=== PATIENT | female | born 1975 | race Caucasian/White ===

== ENCOUNTER 2017-10-25 21:12 | Emergency (ER) | payer OTHER ==
--- NOTE | 2017-10-25 23:00 | ER Document Report ---
ED General - General Chief Complaint: Chest Tightness Stated Complaint: SHOULDER/BACK PAIN Time Seen by Provider: 10/25/17 22:59 Notes: Patient is a 42-year-old female presents with complaint of some chest tightness. No difficulty breathing. No fevers. No nausea. No vomiting. Such as Tylenol has been very mild and intermittent throughout the day. She says she also some right shoulder and arm pain. She says this is chronic recurring and is told in the past is most likely related to carpal tunnel syndrome. She says she has pain feels like a tapping sensation behind her right shoulder blade and the pain into numbness into her right arm and wrist. Said she first had this a few years ago. She was given a wrist splint to wear at night. Her she is to have the symptoms again a few days ago and start wearing a wrist splint that has helped some. Only family history of coronary disease as her dad had quadruple bypass just 2 years ago. No family history of heart disease at a young age. Patient is not diabetic. She does not smoke. She does not have a history of high cholesterol or hypertension. She is not taking medications. TRAVEL OUTSIDE OF THE [place] IN LAST 30 DAYS: No Past Medical History - Social History Smoking Status: Never Smoker Frequency of alcohol use: Rare Drug Abuse: None Family History: CVA - Dad with a heart attack within the past few months. - Immunizations Hx Diphtheria, Pertussis, Tetanus Vaccination: Yes Review of Systems - Review of Systems Notes: My Normal Review Basic REVIEW OF SYSTEMS: CONSTITUTIONAL : Denies fever, chills, or sweats. Denies recent illness. EENT: Denies eye, ear, throat, or mouth pain or symptoms. Denies nasal or sinus congestion. CARDIOVASCULAR: Mild chest tightness RESPIRATORY: Denies cough, cold, or chest congestion. Denies shortness of breath, difficulty breathing, or wheezing. GASTROINTESTINAL: Denies abdominal pain. Denies nausea, vomiting, or diarrhea. GENITOURINARY: Denies difficulty urinating, painful urination, burning, frequency, or blood in urine. MUSCULOSKELETAL: Denies neck or back pain or joint pain or swelling. SKIN: Denies rash or skin lesions. NEUROLOGICAL: Denies altered mental status or loss of consciousness. Denies headache. Denies weakness or paralysis or loss of use of either side. Denies problems with gait or speech. Denies sensory or motor loss. ALL OTHER SYSTEMS REVIEWED AND NEGATIVE. Physical Exam - Vital signs Vitals: Temp Pulse Resp BP Pulse Ox 98.7 F 96 16 136/87 H 98 10/25/17 21:42 10/25/17 21:42 10/25/17 21:42 10/25/17 21:42 10/25/17 21:42 - Notes Notes: General Appearance: Well nourished, alert, cooperative, no acute distress, no obvious discomfort. Well-appearing. Vitals: reviewed, See vital signs table. Head: no swelling or tenderness to the head Eyes: PERRL, EOMI, Conjuctiva clear Mouth: No decreasd moisture Lungs: No wheezing, No rales, No rhonci, No accessory muscle use, good air exchange bilaterally. Heart: Normal rate, Regular rythm, No murmur, no rub Abdomen: Normal BS, soft, No rigidity, No abdominal tenderness, No guarding, no rebound, no abdominal masses, no organomegaly Extremities: strength 5/5 in all extremities, good pulses in all extremities, no swelling or tenderness in the extremities, no edema. Skin: warm, dry, appropriate color, no rash. Reproducible pain with range of motion of the right shoulder or palpation of the shoulder. Neuro: speech clear, oriented x 3, normal affect, responds appropriately to questions. Cranial nerves II through XII are intact. Patient has good strength and neurologic function in her right hand. She is able to flex and extend all fingers. She is able to abduct and adduct her fingers on difficult. Good distal sensation in radial ulnar and median nerve dermatomes. Course - Re-evaluation Re-evalutation: 10/26/17 05:40 Patient's cardiac workup is negative. She has a heart score of 1. She is well- appearing. I do not think she needs any further cardiac workup at this time. Should patient does have pain shoots up and down her arm. She does have some recurrent pain with tapping over the wrist. She has been told before that this is related to carpal tunnel and she was given a splint. She just start wearing the splint again and the pain does seem to improve at this point and therefore think carpal tunnel is a possibility. I will refer her to orthopedist. Informed her that if it is carpal tunnel that she should follow with orthopedics to get treatment otherwise she could have nerve damage and of decreased function of her hand with time. Patient shows understanding of this and agrees with plan. Patient encouraged to return to the ER immediately if she has some chest pain, difficulty breathing, or feels unwell. Dictation of this chart was performed using voice recognition software; therefore, there may be some unintended grammatical errors. - Vital Signs Vital signs: Temp Pulse Resp BP Pulse Ox 98.7 F 96 16 136/88 H 98 10/25/17 22:48 10/25/17 21:42 10/25/17 22:48 10/25/17 22:48 10/25/17 22:48 - Laboratory Result Diagrams: 10/25/17 23:35 10/25/17 23:35 Laboratory results interpreted by me: 10/25/17 23:35 Hgb 8.5 L Hct 27.3 L MCV 63 L MCH 19.5 L MCHC 31.1 L RDW 19.0 H - EKG Interpretation by Me Additional EKG results interpreted by me: 10/25/17 22:59 EKG is reviewed and interpreted by me. EKG shows normal sinus rhythm with rate of [address] segment elevation or depression. No concerning T-wave inversions. IL interval, QRS duration, QTc intervals are within normal range. Old EKG for comparison from November 25, 2015. Discharge - Discharge Clinical Impression: Chest pain Qualifiers: Chest pain type: unspecified Qualified Code(s): R07.9 - Chest pain, unspecified Arm pain Qualifiers: Laterality: right Qualified Code(s): M79.601 - Pain in right arm Condition: Good Disposition: HOME, SELF-CARE Additional Instructions: Please return to the ER immediately if you develop worsening chest pain, difficulty breathing, or feel unwell. Please follow up with the orthopedist, Dr. De León, for further evaluation and treatment of potential carpal tunnel syndrome. Forms: Return to Work
[2017-10-25 23:06] VITALS: BP 136/88
[2017-10-25 23:59] LABS: ABSOLUTE BASOPHILS # (AUTO) 0.1 10^3/uL (0.0-0.2); ABSOLUTE EOSINOPHILS # (AUTO) 0.1 10^3/uL (0.0-0.6); ABSOLUTE MONOCYTES (AUTO) 0.5 10^3/uL (0.1-1.4); BASOPHILS % (AUTO) 1.2 % (0-2); EOSINOPHILS % (AUTO) 1.1 % (0-6); HEMATOCRIT 27.3 % (36.0-47.0); HEMOGLOBIN 8.5 g/dL (12.0-15.5); LYMPHOCYTES % (AUTO) 26.2 % (13-45); MEAN CORPUSCULAR HEMOGLOBIN 19.5 pg (27.0-33.4); MEAN CORPUSCULAR HGB CONC 31.1 g/dL (32.0-36.0); MONOCYTES % (AUTO) 6.5 % (3-13); PLATELET COUNT 307 10^3/uL (150-450); RED BLOOD COUNT 4.35 10^6/uL (3.72-5.28); TOTAL CELLS COUNTED % (AUTO) 100 %; WHITE BLOOD COUNT 7.8 10^3/uL (4.0-10.5)
[2017-10-26 00:04] LABS: ALANINE AMINOTRANSFERASE 23 U/L (9-52); ALBUMIN 4.1 g/dL (3.5-5.0); ALKALINE PHOSPHATASE 71 U/L (38-126); ANION GAP 12 (5-19); ASPARTATE AMINO TRANSFERASE 14 U/L (14-36); BILIRUBIN,DIRECT 0.2 mg/dL (0.0-0.4); BILIRUBIN,TOTAL 0.3 mg/dL (0.2-1.3); BLOOD UREA NITROGEN 9 mg/dL (7-20); CARBON DIOXIDE 25 mmol/L (22-30); CHLORIDE 104 mmol/L (98-107); GLUCOSE 97 mg/dL (75-110); SODIUM 140.8 mmol/L (137-145); TOTAL PROTEIN 7.2 g/dL (6.3-8.2)
--- NOTE | 2017-10-26 00:05 | RADIOLOGY REPORT (SQ) ---
EXAM DESCRIPTION: CLINICAL HISTORY: 42 years Female chest pain COMPARISON: None. FINDINGS: The cardiomediastinal silhouette appears unremarkable. No consolidating infiltrates or pleural effusions. No pneumothorax. IMPRESSION: No acute abnormality is identified.
[2017-10-26 00:18] LABS: MEAN CORPUSCULAR VOLUME 63 fl (80-97)
[2017-10-26 00:49] LABS: HYPOCHROMASIA 3+; POLYCHROMASIA SLIGHT
[2017-10-26 00:50] LABS: OVALOCYTES 1+; PLATELET COMMENT ADEQUATE
--- NOTE | 2017-10-26 07:37 | EKG REPORT ---
SEVERITY:- BORDERLINE ECG - SINUS RHYTHM BORDERLINE T ABNORMALITIES, INFERIOR LEADS : Confirmed by: Marvin Rosales MD 26-Oct-2017 07:36:56
[2017-10-29 09:01] LABS: PATH REVIEW PATHOLOGIST REVIEWED
== END 2017-10-26 01:58 | disposition home or self-care (01) ==
LOC: ER 21:12
DX: R07.9 Chest pain, unspecified (principal); M79.601 Pain in right arm
CPT/HCPCS: 36415; 71045; 80053; 84484; 85025; 93005; 93010; 99285

== ENCOUNTER 2017-10-28 18:27 | Emergency (ER) | payer OTHER ==
[2017-10-28 18:37] VITALS: BP 137/85
[2017-10-28] MEDS ORDERED: FAMOTIDINE 20 MG TABLET PO ONE (19:22)
[2017-10-28] MEDS ORDERED: ONDANSETRON 4 MG TAB.RAPDIS PO ONE (19:22)
--- NOTE | 2017-10-28 19:27 | ER Document Report ---
ED General - General Chief Complaint: Nausea/Vomiting Stated Complaint: VOMITING Time Seen by Provider: 10/28/17 19:16 Mode of Arrival: Ambulatory Information source: Patient Notes: 42-year-old female with no reported past medical history presents with complaint of nausea, vomiting and loose stools. Patient states symptoms have been ongoing for 5 days. She states that she has had intermittent episodes of vomiting that is nonbilious, nonbloody. Patient reports intermittent inability to tolerate certain foods. She denies any fever, chills, chest pain, abdominal pain. She does report some loose stools that were nonbloody and not black in color. Patient was seen recently where she had cardiac workup which was within normal limits. Patient was discharged home at that time in stable condition. Patient denies sick contacts, recent antibiotic use, recent travel. She denies tobacco use, drug use and reports occasional alcohol use. TRAVEL OUTSIDE OF THE [place] IN LAST 30 DAYS: No - HPI Onset: Last week Onset/Duration: Persistent Quality of pain: No pain Associated symptoms: Diarrhea, Nausea, Vomiting Exacerbated by: Denies Relieved by: Denies Similar symptoms previously: Yes Recently seen / treated by doctor: Yes - Related Data Allergies/Adverse Reactions: No Known Allergies Allergy (Verified 10/28/17 19:12) Past Medical History - General Information source: Patient - Social History Smoking Status: Never Smoker Chew tobacco use (# tins/day): No Frequency of alcohol use: Occasional Drug Abuse: None Lives with: Family Family History: CVA - Dad with a heart attack within the past few months. Patient has suicidal ideation: No Patient has homicidal ideation: No Renal/ Medical History: Denies: Hx Peritoneal Dialysis - Immunizations Hx Diphtheria, Pertussis, Tetanus Vaccination: Yes Review of Systems - Review of Systems Notes: REVIEW OF SYSTEMS: CONSTITUTIONAL : Denies fever, chills, or sweats. Denies recent illness. Denies weight loss, recent hospitalizations. EENT: Denies visual changes, eye pain. Denies nasal or sinus congestion or discharge. Denies sore throat, oral lesions, difficulty swallowing. CARDIOVASCULAR: Denies chest pain. Denies palpitations. Denies lower extremity edema. RESPIRATORY: Denies cough, cold, or chest congestion. Denies shortness of breath, wheezing. GASTROINTESTINAL: Denies abdominal pain or distention. Denies blood in vomitus , stools, or per rectum. Denies black, tarry stools. Denies constipation. GENITOURINARY: Denies difficulty urinating, painful urination, frequency, blood in urine, or vaginal discharge. MUSCULOSKELETAL: Denies back or neck pain or stiffness. Denies joint pain or swelling. SKIN: Denies rash, lesions or sores. HEMATOLOGIC : Denies easy bruising or bleeding. LYMPHATIC: Denies swollen glands. NEUROLOGICAL: Denies confusion or altered mental status. Denies passing out or loss of consciousness. Denies dizziness or lightheadedness. Denies headache. Denies weakness or paralysis. Denies problems difficulty with ambulation, slurred speech. Denies sensory loss, numbness, or tingling. Denies seizures. PSYCHIATRIC: Denies anxiety or stress. Denies depression, suicidal ideation, or homicidal ideation. Denies visual or auditory hallucinations. Physical Exam - Vital signs Vitals: Temp Pulse Resp BP Pulse Ox 99.0 F 102 H 16 137/85 H 97 10/28/17 18:36 10/28/17 18:36 10/28/17 18:36 10/28/17 18:36 10/28/17 18:36 - Notes Notes: PHYSICAL EXAMINATION: GENERAL: Well-appearing, well-nourished and in no acute distress. HEAD: Atraumatic, normocephalic. EYES: Pupils equal round and reactive to light, extraocular movements intact, conjunctiva are normal. ENT: Nares patent, oropharynx clear without exudates. Moist mucous membranes. NECK: Normal range of motion, supple without lymphadenopathy LUNGS: Breath sounds clear to auscultation bilaterally and equal. No wheezes rales or rhonchi. HEART: Regular rate and rhythm without murmurs ABDOMEN: Soft, nontender, nondistended abdomen. No guarding, no rebound. No masses appreciated. Female : deferred Musculoskeletal: Normal range of motion, no pitting or edema. No cyanosis. NEUROLOGICAL: Cranial nerves grossly intact. Normal speech, normal gait. Normal sensory, motor exams PSYCH: Normal mood, normal affect. SKIN: Warm, Dry, normal turgor, no rashes or lesions noted. Course - Re-evaluation Re-evalutation: 10/28/17 19:26 42-year-old female with no reported past medical history presents with complaint of nausea, vomiting and loose stools. Patient states symptoms have been ongoing for 5 days. She states that she has had intermittent episodes of vomiting that is nonbilious, nonbloody. Patient reports intermittent inability to tolerate certain foods. She denies any fever, chills, chest pain, abdominal pain. She does report some loose stools that were nonbloody and not black in color. Patient was seen recently where she had cardiac workup which was within normal limits. Patient was discharged home at that time in stable condition. Patient denies sick contacts, recent antibiotic use, recent travel. She denies tobacco use, drug use and reports occasional alcohol use. Upon arrival vitals were reviewed. Patient is mildly tachycardic at a rate of 102, afebrile. She does not appear toxic or dehydrated. She is in no acute distress. Physical exam is within normal limits. Previous medical records were reviewed including her recent cardiac workup obtained a few days ago. Patient was provided Zofran, Pepcid. She was monitored and we made sure that she was able to tolerate fluids. Patient provided the opportunity to ask questions, and express concerns. Discharge instructions discussed. Patient is agreeable with discharge home. Return indications explained and discussed with the patient who displays understanding. Patient encouraged to return to the emergency department immediately with any concerns. 10/28/17 19:26 - Vital Signs Vital signs: Temp Pulse Resp BP Pulse Ox 99.0 F 102 H 16 137/85 H 97 10/28/17 18:36 10/28/17 18:36 10/28/17 18:36 10/28/17 18:36 10/28/17 18:36 Discharge - Discharge Clinical Impression: Nausea & vomiting Qualifiers: Vomiting type: unspecified Vomiting Intractability: non-intractable Qualified Code(s): R11.2 - Nausea with vomiting, unspecified Diarrhea Qualifiers: Diarrhea type: unspecified type Qualified Code(s): R19.7 - Diarrhea, unspecified Condition: Good Disposition: HOME, SELF-CARE Instructions: Diarrhea, Nonspecific ([facility]), Vomiting ([facility]) Additional Instructions: Please drink plenty of water, Gatorade or Pedialyte. Please stay away from caffeinated beverages. Please adhere to a light diet and avoid greasy or fatty foods for the next 3-5 days. Follow up with your physician tomorrow for further care or return to the ED IMMEDIATELY if symptoms worsen or new concerns occur. If you cannot afford to follow up with your primary care physician a list of low cost clinics have been provided at the end of your discharge papers as well. Prescriptions: Famotidine [Pepcid 40 mg Tablet] 40 mg PO DAILY #30 tablet Ondansetron [Zofran Odt 4 mg Tablet] 1 - 2 tab PO Q4H PRN #15 tab.rapdis PRN Reason: For Nausea/Vomiting Forms: Elevated Blood Pressure
== END 2017-10-28 19:55 | disposition home or self-care (01) ==
LOC: ER 18:27
DX: R11.2 Nausea with vomiting, unspecified (principal); R19.7 Diarrhea, unspecified
CPT/HCPCS: 99283; S0119

== ENCOUNTER 2017-11-01 04:48 | Emergency (ER) | payer OTHER ==
[2017-11-01] MEDS ORDERED: ASPIRIN 81 MG TABLET, CHEWABLE PO ONE (06:58)
--- NOTE | 2017-11-01 07:00 | ER Document Report ---
ED Medical Screen (RME) - General Chief Complaint: Shortness Of Breath Stated Complaint: SHORTNESS OF BREATH Time Seen by Provider: 11/01/17 06:54 Mode of Arrival: Ambulatory Information source: Patient Notes: pt c/o SOB since yesterday, vomiting daily for a week, declines nausea med. Reports chest pressure going thru to the back since yesterday. Denies f/d. Reports recent trip across the state. denies history of cad, dm, copd. TRAVEL OUTSIDE OF THE [place] IN LAST 30 DAYS: No - Related Data Allergies/Adverse Reactions: No Known Allergies Allergy (Verified 10/28/17 19:12) Past Medical History - Social History Chew tobacco use (# tins/day): No Frequency of alcohol use: None Drug Abuse: None Renal/ Medical History: Denies: Hx Peritoneal Dialysis GI Medical History: Reports: Hx Gastroesophageal Reflux Disease - Immunizations Hx Diphtheria, Pertussis, Tetanus Vaccination: Yes Physical Exam - Vital signs Vitals: Temp Pulse Resp BP Pulse Ox 98.3 F 85 16 127/81 H 98 11/01/17 05:00 11/01/17 05:00 11/01/17 05:00 11/01/17 05:00 11/01/17 05:00 Course - Vital Signs Vital signs: Temp Pulse Resp BP Pulse Ox 98.3 F 85 14 134/70 H 100 11/01/17 05:00 11/01/17 05:00 11/01/17 06:01 11/01/17 06:01 11/01/17 06:01
--- NOTE | 2017-11-01 07:25 | ER Document Report ---
ED Respiratory Problem - General Mode of Arrival: Ambulatory Information source: Patient TRAVEL OUTSIDE OF THE [place] IN LAST 30 DAYS: No <YUNG PLATT - Last Filed: 11/01/17 13:26> <AINSLEYSHAUN Jesus - Last Filed: 11/03/17 15:05> - General Chief Complaint: Shortness Of Breath Stated Complaint: SHORTNESS OF BREATH Time Seen by Provider: 11/01/17 06:54 Notes: Patient is a 42-year-old female who presents to the emergency department today with complaints of shortness of breath with associated chest tightness for the last 3 days. Patient mentions she also has had vomiting daily for the last few days. 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 Patient mentions a recent long trip, states she drove across the [facility] to [place] and then back. Patient denies a history of PE or DVT or fevers. (YUNG LPATT) - Related Data Allergies/Adverse Reactions: No Known Allergies Allergy (Verified 10/28/17 19:12) Past Medical History - General Information source: Patient - Social History Smoking Status: Unknown if Ever Smoked Cigarette use (# per day): No Chew tobacco use (# tins/day): No Frequency of alcohol use: None Drug Abuse: None Lives with: Family Family History: Reviewed & Not Pertinent, CVA - Dad with a heart attack within the past few months. Patient has suicidal ideation: No Patient has homicidal ideation: No Renal/ Medical History: Denies: Hx Peritoneal Dialysis GI Medical History: Reports: Hx Gastroesophageal Reflux Disease - Immunizations Hx Diphtheria, Pertussis, Tetanus Vaccination: Yes <YUNG PLATT - Last Filed: 11/01/17 13:26> Review of Systems - Review of Systems Constitutional: denies: Fever EENT: No symptoms reported Cardiovascular: No symptoms reported Respiratory: See HPI, Cough, Short of breath Gastrointestinal: See HPI, Vomiting Genitourinary: No symptoms reported Female Genitourinary: No symptoms reported Musculoskeletal: No symptoms reported Skin: No symptoms reported Hematologic/Lymphatic: No symptoms reported Neurological/Psychological: No symptoms reported -: Yes All other systems reviewed and negative <YUNG PLATT - Last Filed: 11/01/17 13:26> Physical Exam <YUNG PLATT - Last Filed: 11/01/17 13:26> <SHAUN SCHMITZ - Last Filed: 11/03/17 15:05> - Vital signs Vitals: Temp Pulse Resp BP Pulse Ox 98.3 F 85 16 127/81 H 98 11/01/17 05:00 11/01/17 05:00 11/01/17 05:00 11/01/17 05:00 11/01/17 05:00 - Notes Notes: Physical Exam: General: Alert, appears well. HEENT: Normocephalic. Atraumatic. PERRL. Extraocular movements intact. Oropharynx clear. Neck: Supple. Non-tender. Respiratory: No respiratory distress. Clear and equal breath sounds bilaterally. Cardiovascular: Regular rate and rhythm. Abdominal: Obese. Non-tender. No distension. Normal Bowel Sounds. Back: Non-tender. No deformity or step off. Extremities: Moves all four extremities. Upper extremities: Normal inspection. Normal ROM. Lower extremities: Normal inspection. No edema. Normal ROM. Neurological: Normal cognition. AAOx4. Normal speech. Psychological: Normal affect. Normal Mood. Skin: Warm. Dry. Normal color. (YUNG PLATT) Course - Laboratory Result Diagrams: 11/01/17 07:45 11/01/17 07:45 <YUNG PLATT - Last Filed: 11/01/17 13:26> - Laboratory Result Diagrams: 11/01/17 07:45 11/01/17 07:45 - EKG Interpretation by Ok EKG shows normal: Sinus rhythm Rate: Normal Rhythm: NSR <SHAUN SCHMITZ - Last Filed: 11/03/17 15:05> - Re-evaluation Re-evalutation: 11/01/17 11:03 Patient workup reveals microcytic anemia with low iron levels. Fecal occult blood test negative. We will place patient on iron supplementation and have her follow-up with Dr. Varma as they are unassigned family practice today, and the patient has insurance. Return precautions provided (SHAUN SCHMITZ) - Vital Signs Vital signs: Temp Pulse Resp BP Pulse Ox 98.3 F 85 13 120/74 99 11/01/17 05:00 11/01/17 05:00 11/01/17 11:01 11/01/17 11:01 11/01/17 11:01 - Laboratory Laboratory results interpreted by me: 11/01/17 11/01/17 11/01/17 07:45 07:45 07:55 Hgb 7.8 L Hct 25.0 L MCV 63 L MCH 19.6 L MCHC 31.1 L RDW 18.8 H Iron < 10.1 L Ferritin 3.41 L Urine Blood MODERATE H Discharge <YUNG PLATT - Last Filed: 11/01/17 13:26> <SHAUN SCHMITZ - Last Filed: 11/03/17 15:05> - Discharge Clinical Impression: Iron deficiency anemia Qualifiers: Iron deficiency anemia type: other iron deficiency Qualified Code(s): D50.8 - Other iron deficiency anemias Condition: Good Disposition: HOME, SELF-CARE Prescriptions: Ferrous Sulfate [Ferrousul] 325 mg PO BID 30 Days #60 tablet Referrals: ASH VARMA DO [NO LOCAL MD] - Follow up in 3-5 days (For primary care establishment and reevaluation) Scribe Attestation: 11/03/17 15:05 I personally performed the services described documentation, reviewed and edited the documentation which was dictated to describe my presence, and it accurately records my words and actions. (SHAUN SCHMITZ) Scribe Documentation - Scribe Written by Scribe:: Ted Archibald, 11/01/2017 1330 acting as scribe for :: Ainsley <YUNG PLATT - Last Filed: 11/01/17 13:26>
[2017-11-01 08:08] LABS: ABSOLUTE BASOPHILS # (AUTO) 0.1 10^3/uL (0.0-0.2); ABSOLUTE EOSINOPHILS # (AUTO) 0.2 10^3/uL (0.0-0.6); ABSOLUTE LYMPHOCYTES (AUTO) 1.6 10^3/uL (0.5-4.7); ABSOLUTE MONOCYTES (AUTO) 0.4 10^3/uL (0.1-1.4); ALANINE AMINOTRANSFERASE 21 U/L (9-52); ALBUMIN 3.8 g/dL (3.5-5.0); ALKALINE PHOSPHATASE 66 U/L (38-126); ANION GAP 10 (5-19); ASPARTATE AMINO TRANSFERASE 16 U/L (14-36); BASOPHILS % (AUTO) 1.7 % (0-2); BILIRUBIN,DIRECT 0.3 mg/dL (0.0-0.4); BILIRUBIN,TOTAL 0.3 mg/dL (0.2-1.3); BLOOD UREA NITROGEN 11 mg/dL (7-20); CALCIUM 8.9 mg/dL (8.4-10.2); CARBON DIOXIDE 27 mmol/L (22-30); CHLORIDE 106 mmol/L (98-107); CREATINE KINASE 60 U/L (30-135); EOSINOPHILS % (AUTO) 3.1 % (0-6); GLUCOSE 104 mg/dL (75-110); LYMPHOCYTES % (AUTO) 29.6 % (13-45); MEAN CORPUSCULAR HEMOGLOBIN 19.6 pg (27.0-33.4); MEAN CORPUSCULAR HGB CONC 31.1 g/dL (32.0-36.0); MEAN CORPUSCULAR VOLUME 63 fl (80-97); MONOCYTES % (AUTO) 8.2 % (3-13); PLATELET COUNT 289 10^3/uL (150-450); POTASSIUM 4.3 mmol/L (3.6-5.0); RED BLOOD COUNT 3.97 10^6/uL (3.72-5.28); RED CELL DISTRIBUTION WIDTH 18.8 % (11.5-14.0); SEGMENTED NEUTROPHILS % (AUTO) 57.4 % (42-78); SODIUM 143.3 mmol/L (137-145); TOTAL CELLS COUNTED % (AUTO) 100 %; TOTAL PROTEIN 6.8 g/dL (6.3-8.2); WHITE BLOOD COUNT 5.3 10^3/uL (4.0-10.5)
[2017-11-01 08:15] LABS: HEMOGLOBIN 7.8 g/dL (12.0-15.5)
[2017-11-01 08:20] LABS: CREATINE KINASE MB 0.45 ng/mL (<4.55)
[2017-11-01 08:28] LABS: ANISOCYTOSIS 2+; HYPOCHROMASIA SLIGHT; PLATELET COMMENT ADEQUATE; PLATELET LARGE PRESENT; POLYCHROMASIA SLIGHT
[2017-11-01 08:31] LABS: TROPONIN I < 0.012 ng/mL
[2017-11-01 09:07] LABS: ABSOLUTE RETICS # 0.092 10^6/uL (0.028-0.122); RETICULOCYTE COUNT (AUTO) 2.25 % (0.66-2.85)
[2017-11-01 09:27] LABS: APPEARANCE,URINE CLEAR; BILIRUBIN,URINE NEGATIVE (NEGATIVE); COLOR,URINE STRAW; GLUCOSE, URINE NEGATIVE (NEGATIVE); KETONES,URINE NEGATIVE (NEGATIVE); LEUKOCYTE ESTERASE,URINE NEGATIVE (NEGATIVE); NITRITE,URINE NEGATIVE (NEGATIVE); PROTEIN,URINE NEGATIVE (NEGATIVE); URINE SPECIFIC GRAVITY 1.008; UROBILINOGEN,URINE NEGATIVE mg/dL (<2.0)
--- NOTE | 2017-11-01 09:43 | EKG REPORT ---
SEVERITY:- ABNORMAL ECG - SINUS RHYTHM NONSPECIFIC T ABNORMALITIES, INFERIOR LEADS : Confirmed by: Sourav Oliver 01-Nov-2017 09:42:18
[2017-11-01 09:53] LABS: FERRITIN 3.41 ng/mL (6.2-137.0)
[2017-11-01 10:23] LABS: FOLATE 7.35 ng/mL (>2.76)
[2017-11-01 10:28] LABS: IRON(TIBC) < 10.1 ug/dL (37-170)
[2017-11-01 11:13] VITALS: BP 120/74
== END 2017-11-01 11:21 | disposition home or self-care (01) ==
LOC: ER 04:48
DX: D50.8 Other iron deficiency anemias (principal); R06.02 Shortness of breath
CPT/HCPCS: 36415; 80053; 81001; 82272; 82550; 82553; 82607; 82728; 82746; 83540; 83550; 83735; 84484; 84703; 85025; 85045; 85379; 93005; 93010; 99284

== ENCOUNTER 2019-06-03 12:48 | Observation (INO) | payer OTHER ==
[2019-06-09 10:09] LABS: HEMATOCRIT 38.5 % (36.0-47.0); HEMOGLOBIN 12.9 g/dL (12.0-15.5); MEAN CORPUSCULAR HEMOGLOBIN 28.6 pg (27.0-33.4); MEAN CORPUSCULAR HGB CONC 33.6 g/dL (32.0-36.0); MEAN CORPUSCULAR VOLUME 85 fl (80-97); PLATELET COUNT 207 10^3/uL (150-450); RED BLOOD COUNT 4.52 10^6/uL (3.72-5.28); RED CELL DISTRIBUTION WIDTH 13.8 % (11.5-14.0)
--- NOTE | 2019-06-09 10:13 | RADIOLOGY REPORT (SQ) ---
EXAM DESCRIPTION: CHEST PA/LATERAL COMPLETED DATE/TIME: 06/09/2019 10:05 am REASON FOR STUDY: PRE-OP COMPARISON: None. EXAM PARAMETERS: NUMBER OF VIEWS: two views TECHNIQUE: Digital Frontal and Lateral radiographic views of the chest acquired. RADIATION DOSE: NA LIMITATIONS: none FINDINGS: LUNGS AND PLEURA: No opacities, masses or pneumothorax. No pleural effusion. MEDIASTINUM AND HILAR STRUCTURES: No masses or contour abnormalities. HEART AND VASCULAR STRUCTURES: Heart normal size. No evidence for failure. BONES: No acute findings. HARDWARE: None in the chest. OTHER: No other significant finding. IMPRESSION: NO SIGNIFICANT RADIOGRAPHIC FINDING IN THE CHEST. TECHNICAL DOCUMENTATION: JOB ID: [id number] [employer]- All Rights Reserved Reading location - IP/workstation name: [email or web address]
[2019-06-09 10:34] LABS: ANION GAP 10 (5-19); BLOOD UREA NITROGEN 12 mg/dL (7-20); CALCIUM 8.7 mg/dL (8.4-10.2); CARBON DIOXIDE 22 mmol/L (22-30); CHLORIDE 105 mmol/L (98-107); GLUCOSE 102 mg/dL (75-110); POTASSIUM 4.3 mmol/L (3.6-5.0)
[2019-06-09 10:35] LABS: APPEARANCE,URINE CLEAR; BILIRUBIN,URINE NEGATIVE (NEGATIVE); COLOR,URINE YELLOW; GLUCOSE, URINE NEGATIVE (NEGATIVE); KETONES,URINE NEGATIVE (NEGATIVE); LEUKOCYTE ESTERASE,URINE NEGATIVE (NEGATIVE); NITRITE,URINE NEGATIVE (NEGATIVE); PROTEIN,URINE NEGATIVE (NEGATIVE); URINE SPECIFIC GRAVITY 1.011; UROBILINOGEN,URINE NEGATIVE mg/dL (<2.0)
--- NOTE | 2019-06-09 20:55 | EKG REPORT ---
SEVERITY:- ABNORMAL ECG - SINUS RHYTHM PROBABLE LEFT ATRIAL ABNORMALITY ABNORMAL T, CONSIDER ISCHEMIA, INFERIOR LEADS : Confirmed by: Sourav Oliver 09-Jun-2019 20:54:28
[2019-06-16] MEDS ORDERED: LIDOCAINE 0.5% INJ-PF (5 MG/ML) 50 ML SDV SUBCUT PRN (05:00)
[2019-06-16] MEDS ORDERED: RINGERS SOLUTION,LACTATED 1,000 ML IV PRN (05:00)
[2019-06-16] MEDS ORDERED: CEFAZOLIN 1 GM/D5W RTU 1 GM/50 ML RTUPB IV PRN (05:00)
[2019-06-16] MEDS ORDERED: LACTATED RINGERS 1000 ML IV PRN (05:00)
[2019-06-16] MEDS ORDERED: CEFAZOLIN 1 GM/D5W RTU 1 GM/50 ML RTUPB IV ONE (05:02)
[2019-06-16] MEDS ORDERED: FENTANYL CITRATE INJ/PF 100 MCG/2 ML AMPUL ONE (06:53)
[2019-06-16] MEDS ORDERED: HYDROMORPHONE HCL INJ/PF 2 MG/ML AMPULE ONE (06:53)
[2019-06-16] MEDS ORDERED: MIDAZOLAM 2 MG/2 ML INJ ONE (06:53)
[2019-06-16] MEDS ORDERED: LIDOCAINE 2% INJ (20 MG/ML) 20 ML MDV ONE (06:54)
[2019-06-16] MEDS ORDERED: PROPOFOL INJ 200 MG/20 ML VIAL IV ONE (06:54)
[2019-06-16] MEDS ORDERED: BUPIVACAINE INJ/PF LIPOSOME/PF 266 MG/20 ML SDV ONE (07:09)
[2019-06-16] MEDS ORDERED: BUPIVACAINE INJ/PF LIPOSOME/PF 266 MG/20 ML SDV INJ ONE (07:23)
[2019-06-16] MEDS ORDERED: PROMETHAZINE HCL INJ 25 MG/1 ML VIAL IV PRN ×2 (07:54→09:56)
[2019-06-16] MEDS ORDERED: MEPERIDINE HCL/PF INJ 25 MG/1 ML DISP.SYRIN IV PRN (07:54)
[2019-06-16] MEDS ORDERED: ONDANSETRON HCL INJ/PF 4 MG/2 ML SDV IV PRN (07:54)
[2019-06-16] MEDS ORDERED: DIPHENHYDRAMINE HCL 50 MG/ML VIAL IV PRN (07:54)
[2019-06-16] MEDS ORDERED: MORPHINE SULFATE 10 MG/ML INJ IV PRN ×3 (07:54→09:56)
[2019-06-16] MEDS ORDERED: FENTANYL CITRATE INJ/PF 100 MCG/2 ML AMPUL IV PRN ×3 (07:54)
--- NOTE | 2019-06-16 09:01 | Operative Report ---
Operative Report DATE OF SURGERY: 06/16/19 PREOPERATIVE DIAGNOSIS: 20 week fibroid uterus POSTOPERATIVE DIAGNOSIS: same OPERATION: supracervical hysterectomy SURGEON: ALBERT PINTO ANESTHESIA: GA TISSUE REMOVED OR ALTERED: uterus, both tubes COMPLICATIONS: none ESTIMATED BLOOD LOSS: 100 INTRAOPERATIVE FINDINGS: 20 week size fibroid uterus, normal ovaries, tubes PROCEDURE: The patient was taken to the operating room and after surgical timeout was obtained antibiotics been given and Bain catheter inserted she was prepped and draped usual manner for abdominal hysterectomy. Through a midline incision extending to this through the subcutaneous fat and fascia the peritoneum was entered without difficulty and a self-retaining retractor was placed abdominal contents were packed out of the pelvis the uterus and the uterus was brought in the operative field. Above-noted findings were appreciated. Round ligaments were identified tagged and cut and the bladder was reflected inferiorly throughout the case. The utero-ovarian ligaments were crossclamped cut suture- ligated and cut. Using a LigaSure device the electrosurgical technique was used down to level uterine vessels which were crossclamped stitch suture-ligated and tied. At this point is noted in her cervix and extended way down into the deep narrow pelvis elected to stop the procedure at this point given the goals the operation of been achieved. The tubes were identified bilaterally and removed separately wit the ligasure device. Good hemostasis was assured at this point parietal peritoneum was to be dry and the fascia was closed with double-stranded #1 PDS suture running fashion. Clutier was used incision site the fascia fat was closed with the plain gut the skin approximated skin davidson. Completion of procedure all sponge needle counts correct. Preoperatively the patient was given the options of surgery and the usual risks of bleeding infection anesthesia damage to other organs and tissues were discussed the patient understood.
[2019-06-16] MEDS ORDERED: ACETAMINOPHEN 1,000 MG/100 ML RTUPB IV ONE (09:11)
[2019-06-16] MEDS ORDERED: KETOROLAC TROMETHAMINE INJ/PF 30 MG/1 ML SDV ONE (09:11)
[2019-06-16] MEDS: OXYCODONE-ACETAMINOPHEN 5-325 MG TABLET PO PRN ×3 (10:51→23:20)
[2019-06-16] MEDS ORDERED: GLYCOPYRROLATE 1 MG/5 ML VIAL ONE (12:31)
[2019-06-16] MEDS ORDERED: DEXAMETHASONE SOD PHOSPHATE INJ 4 MG/1 ML VIAL ONE (12:31)
[2019-06-16] MEDS ORDERED: NEOSTIGMINE METHYLSULFATE 10 MG/10 ML VIAL ONE (12:31)
[2019-06-16] MEDS ORDERED: ONDANSETRON HCL INJ/PF 4 MG/2 ML SDV ONE (12:31)
[2019-06-16] MEDS ORDERED: ROCURONIUM BROMIDE INJ 50 MG/5 ML VIAL IV ONE (12:31)
[2019-06-16] MEDS ORDERED: CEFAZOLIN SODIUM 1 GM in DEXTROSE 5%-WATER 50 ML IV ONE (13:30)
[2019-06-16] MEDS: SIMETHICONE 80 MG TAB.CHEW PO PRN (14:14)
[2019-06-16] MEDS: IBUPROFEN 800 MG TABLET PO PRN (15:03)
[2019-06-17] MEDS: IBUPROFEN 800 MG TABLET PO PRN (05:46)
[2019-06-17 07:05] LABS: HEMATOCRIT 32.8 % (36.0-47.0); MEAN CORPUSCULAR HEMOGLOBIN 28.6 pg (27.0-33.4); MEAN CORPUSCULAR HGB CONC 33.7 g/dL (32.0-36.0); MEAN CORPUSCULAR VOLUME 85 fl (80-97); PLATELET COUNT 254 10^3/uL (150-450); RED BLOOD COUNT 3.87 10^6/uL (3.72-5.28); WHITE BLOOD COUNT 11.2 10^3/uL (4.0-10.5)
[2019-06-17] MEDS: SIMETHICONE 80 MG TAB.CHEW PO PRN (08:17)
[2019-06-17 09:08] VITALS: BP 128/80
== END 2019-06-17 10:56 | disposition home or self-care (01) ==
LOC: INOR 06-16 05:20 → INTOOBSV 06-16 05:20 → 2N 06-16 10:15
PROVIDERS: ADMIT Specialist; ATTEND Specialist
DX: D25.1 Intramural leiomyoma of uterus (principal); D25.0 Submucous leiomyoma of uterus; N83.8 Other noninflammatory disorders of ovary, fallopian tube and broad ligament
CPT/HCPCS: 93005; 86900; 86901; 36415 ×3; 86850; 85027 ×2; 81025; 80048; 81001; 88307 ×2; 71046; 93010; 00840; 58150; J2250; J3490 ×3; J0690 ×2; J1100; J1885; J2710; J1170; J2550; J2405; J7060; J2704; J0131; C9290; 840; J3010